=== PATIENT | male | born 1970 | race African-American/Black ===

== ENCOUNTER 2023-11-09 16:45 | Emergency (ER) | payer SELFPAY ==
[~2023-11-09] VITALS: Ht 195.6 cm; Wt 105.0 kg
[2023-11-09 17:00] VITALS: O2SAT 97
[2023-11-09] MEDS ORDERED: NAPR-681 PO (18:50)
[2023-11-09] MEDS ORDERED: CYCL5TAB PO (18:50)
[2023-11-09 19:35] VITALS: BP 135/74; PULSE 73; RESP 16; TEMP 98.2
== END 2023-11-09 19:36 | disposition home or self-care (01) ==
LOC: ER 16:45
DX: S00.93XA Contusion of unspecified part of head, initial encounter (principal); S16.1XXA Strain of muscle, fascia and tendon at neck level, initial encounter; V49.49XA Driver injured in collision with other motor vehicles in traffic accident, initial encounter; Y93.89 Activity, other specified; Y92.89 Other specified places as the place of occurrence of the external cause; Y99.8 Other external cause status
CPT/HCPCS: 71045; 72100; 99284